=== PATIENT | female | born 1945 | race Caucasian/White ===

== ENCOUNTER 2019-07-11 13:34 | Outpatient (CLI) | payer MEDICARE, OTHER | END 2019-07-11 14:05 | LOC: NEPHRO 13:34 | PROVIDERS: ATTEND Internal Medicine Nephrology | DX: I10 Essential (primary) hypertension (principal); E11.9 Type 2 diabetes mellitus without complications | CPT/HCPCS: 99214; G0463 ==

== ENCOUNTER 2019-08-08 15:05 | Outpatient (CLI) | payer MEDICARE, OTHER | END 2019-08-08 15:30 | LOC: NEPHRO 15:05 | PROVIDERS: ATTEND Internal Medicine Nephrology | DX: I10 Essential (primary) hypertension (principal); E11.9 Type 2 diabetes mellitus without complications | CPT/HCPCS: 99214; G0463 ==

== ENCOUNTER 2019-09-26 15:14 | Outpatient (CLI) | payer MEDICARE, OTHER | END 2019-09-26 15:44 | LOC: NEPHRO 15:14 | PROVIDERS: ATTEND Internal Medicine Nephrology | DX: N17.9 Acute kidney failure, unspecified (principal); I12.9 Hypertensive chronic kidney disease with stage 1 through stage 4 chronic kidney disease, or unspecified chronic kidney disease; E11.22 Type 2 diabetes mellitus with diabetic chronic kidney disease; N18.2 Chronic kidney disease, stage 2 (mild) | CPT/HCPCS: G0463 ==